=== PATIENT | female | born 1955 | race Caucasian/White ===

== ENCOUNTER → 2017-01-18 | Outpatient (CLI) | payer OTHER ==
[~2017-01-18] VITALS: Ht 172.7 cm; Wt 90.0 kg
[~2017-01-18] MED LIST: ABILIFY 5 MG TAB5 MG PO; AMITRIPTYLINE H25 M2 PO; ASPIRIN325 PO; AZOR 10-20 MG1 EACH PO; AZOR 10-40 MG1 EACH PO; BENICAR20 MG PO; CLONAZEPAM 1 MG1 M1 PO; COLACE100 MG PO; CRESTOR20 MG PO; DESYREL100 MG PO; EFFEXOR PO; EFFEXOR XR150 MG PO; FENTANYL 1100 MCG/HR TP; FENTANYL 1100 MCG/HR TRANSDERM; FETZIMA40 MG PO; LANTUS SC; LIPITOR80 MG PO; LISINOPRIL20 MG PO; METFORMIN HCL500 MG PO; METHADONE HCL 110 M1 PO; MIRALAX17 GM PO; MORPHINE SULFAT15 M3 PO; MS CONTIN15 MG PO; MS CONTIN30 MG PO; NORVASC10 MG PO; NOVOLIN R100 UNIT/1 IJ; OXYCODONE HCL 55 MG PO; OXYCODONE HCL10 MG PO; OXYCODONE PO; OXYIR 5 MG CAPSU5 M1 PO; OXYIR5 MG PO; PANCREASE; PERCOCET 10-321 EACH PO; PRAVACHOL40 MG PO; REGLAN 10 MG TA10 MG PO; REMERON PO; ZOFRAN8 MG SL; ZYPREXA 5 MG TAB5 M1 PO
--- NOTE | ~2017-01-18 | HPC ---
[facility] [address] [place] [address] PAIN MANAGEMENT CONSULTATION Name: GABRIELE MONTALVO Room #: REG [facility]..#: [id number] Admission: 01/18/17 Attend Phys: Jennifer Giles MD Discharge: Date of : 51 Report #: [id number] THIS REPORT FOR: //name// CC: Meghann Giles DATE OF SERVICE: 01/18/2017 FOLLOWUP COMPLAINT: Here for medication renewal and things are working pretty well. FOLLOWUP HISTORY: The patient is a 61-year-old female who has been followed in the pain clinic. As you recall, she suffers from chronic pancreatitis. She has been treated with methadone. She finds that her pain has been better controlled with this medication. She is taking less of the OxyIR. She overall feels that things are going reasonably well and rates her pain as a 3/10. She would like to have her medications renewed. She does not need the OxyIR medication. She says she has some at home. She would just like to have the methadone 10 mg renewed. PHYSICAL EXAMINATION: Blood pressure 153/84, pulse 95, respiratory rate 16, room air saturation is 94%. The patient continues to have pain and discomfort in the abdominal area, which radiates into her back. Her pain has been problematic since 2001. IMPRESSION: Chronic abdominal pain secondary to chronic pancreatitis since 2001, treated with methadone. She finds that this medication is working reasonably well. She is not taking the oxycodone medication given the benefit she has received from methadone. She is happy with her condition at this juncture and would like to continue with her current medications. She would like to have them renewed. RECOMMENDATION: A script for methadone 10 mg 1 p.o. t.i.d. She will take 2 tablets, 20 mg t.i.d. She will call if she has any problems with the medications. We would like to thank you for letting us participate in her care. We hope she continues to improve. By: [id number] Jennifer Giles MD /christian
[2017-01-18 12:41] VITALS: BP 153/84
== END | disposition home or self-care (01) ==
LOC: PAIN 01-15 08:13
DX: K86.1 Other chronic pancreatitis (principal); Z87.891 Personal history of nicotine dependence

== ENCOUNTER → 2017-08-09 | Outpatient (CLI) | payer OTHER ==
[~2017-08-09] VITALS: Ht 172.7 cm; Wt 92.1 kg
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
[2017-08-09 12:29] VITALS: BP 147/93
== END ==
LOC: PAIN 07:00
DX: K86.1 Other chronic pancreatitis (principal); I10 Essential (primary) hypertension; Z79.891 Long term (current) use of opiate analgesic

== ENCOUNTER → 2017-10-30 | Outpatient (CLI) | payer OTHER ==
[~2017-10-30] VITALS: Ht 172.7 cm; Wt 95.8 kg
[~2017-10-30] MED LIST changes: +ROXICODONE5 M2 PO
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
[2017-10-30 09:53] VITALS: BP 132/76
== END ==
LOC: PAIN 00:40
DX: I10 Essential (primary) hypertension (principal); G89.29 Other chronic pain; M19.90 Unspecified osteoarthritis, unspecified site; F11.90 Opioid use, unspecified, uncomplicated

== ENCOUNTER → 2017-11-29 | Outpatient (CLI) | payer OTHER ==
[~2017-11-29] VITALS: Ht 172.7 cm; Wt 91.3 kg
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
[2017-11-29 09:19] VITALS: BP 134/76
== END ==
LOC: PAIN 11-27 06:17
DX: G89.29 Other chronic pain (principal); R10.9 Unspecified abdominal pain; K86.1 Other chronic pancreatitis; R41.82 Altered mental status, unspecified; Z88.5 Allergy status to narcotic agent; Z88.8 Allergy status to other drugs, medicaments and biological substances; Z88.0 Allergy status to penicillin

== ENCOUNTER → 2017-12-27 | Outpatient (CLI) | payer OTHER ==
[~2017-12-27] VITALS: Ht 172.7 cm; Wt 91.6 kg
--- NOTE | ~2017-12-27 | HPC ---
[facility] [address] [place] [address] PAIN MANAGEMENT CONSULTATION Name: GABRIELE MONTALVO Room #: REG [facility]#: [id number] Admission: 12/27/17 Attend Phys: Jennifer Giles MD Discharge: Date of : 51 Report #: [id number] THIS REPORT FOR: //name// CC: Meghann Giles DATE OF SERVICE: 12/27/2017 PRIMARY CARE PHYSICIAN: Meghann Sun MD FOLLOWUP COMPLAINT: "Things are going pretty good. I am feeling well. I did wake up at about 3:00 this morning. I had a flare up of my pain." FOLLOWUP HISTORY: The patient is a 62-year-old female who has been seen in the pain clinic in the past because of chronic pain associated with pancreatitis. Notes that things are going relatively well. She did have an episode of flare up yesterday. She woke up at 3:00 this morning. Finds that taking her medications at 10:30 and about 7:30 p.m. usually works pretty well. She has had no complications. Feels that her sensorium has cleared. Overall, she feels that things are going reasonably well and would like to continue with her medications. She finds that oxycodone seems to be working in controlling the pain relatively well. ALLERGIES: HYDROXYZINE, CODEINE, AMPICILLIN. CURRENT MEDICATIONS: Zofran 8 mg sublingual, aspirin 325 mg, Prevacid 40 mg, Norvasc 10 mg, Zestril 20 mg for a total of 40 mg daily, MiraLax 17 mg cuff for constipation, Effexor 150 mg, Colace 100 mg, clonazepam 1 mg q.i.d., Abilify 5 mg at bedtime, Zyprexa 2.5 mg at bedtime, Roxicodone 5 mg 1 p.o. b.i.d. Discontinued medications, methadone. PAIN CLINIC ASSESSMENT: 1. Osteoarthritis. The patient is not being treated for osteoarthritis or rheumatoid arthritis. 2. Height 5 feet 8 inches, weight 202 pounds, BMI is 30. 3. Vital signs: Blood pressure 172/83, heart rate 55, respiratory rate 15, room air saturation 99%. 4. Pain intensity 10/08. 5. Fall risk. The patient has not fallen. 6. Blood thinner. The patient is not on a blood thinning medication. 7. History of hypertension. The patient is being treated for hypertension. 8. Opioid therapy greater than 6 weeks. The patient is being treated for chronic pain with opioids from the pain clinic. 9. Risk assessment tool, low risk for opioid use. 10. Functional assessment tool for 59/70. [address] [address] PAIN MANAGEMENT CONSULTATION Name: GABRIELE MONTALVO Room #: REG [facility]#: [id number] Admission: 12/27/17 Attend Phys: Jennifer Giles MD Discharge: Date of : 51 Report #: [id number] 11. Recreational drug use. The patient denies use of recreational drugs. 12. Tobacco: The patient is a former smoker. 13. Alcohol: The patient denies use of alcoholic beverages. PHYSICAL EXAMINATION: GENERAL: The patient is a well-developed white female. She appears her stated age. She is alert and oriented x 3. Her sensorium appears clear. She is spontaneous. HEENT: Normocephalic, atraumatic. Extraocular eye muscles intact. No evidence of nystagmus. Sclerae nonicteric. Hearing within normal limits. Mucous membranes are moist. NECK: Without adenopathy or bruits. HEART: Regular rate. S1, S2. ABDOMEN: Protuberant. The patient does complain of some pain and discomfort in the anterior portion with radiation in her back with flareups this morning. Upper extremity strength is judged to be 5/5 for the major upper extremity areas without sensory changes. Lower extremity muscle strength 5/5 for the major muscle groups. MUSCULOSKELETAL: Without significant scoliosis, kyphosis or lordosis. PSYCHIATRIC: The patient appears to be bright. States that her medications are working well. She feels that the use of the Roxicodone seems to be reasonably well tolerated. IMPRESSION: 1. Chronic pain with history of chronic pancreatitis. 2. Depression. The patient continues to be followed by her Psychiatry/psychiatrist. 3. Hypertension. 4. Chronic pain, treated with opioid medications. RECOMMENDATIONS: We discussed treatment options with the patient. At this juncture, we will continue with her current medication of Roxicodone. She will see us on a monthly basis for a period of time and make sure that things are going reasonably well. She will call us if she has any problems with her medications. We have discussed the use of opioid medications. She is aware of the possible complication with opioid medications, which could cause dependence as well as tolerance. Overall, she feels that things are going reasonably well. Took her medication this morning with the onset of a flare of her chronic pancreatitis. Feels that, that is helped with use of oxycodone. She will call us if she has any problems with her medications. The patient will keep her medications in a confined area. [facility] [address] [place] [address] PAIN MANAGEMENT CONSULTATION Name: GABRIELE MONTALVO Room #: REG [facility]#: [id number] Admission: 12/27/17 Attend Phys: Jennifer Giles MD Discharge: Date of : 51 Report #: [id number] We would like to thank you for letting us participate in her care. We hope she continues to improve. By: [id number] Jennifer Giles MD /VEELYN
[2017-12-27 09:17] VITALS: BP 172/83
== END ==
LOC: PAIN 07:11
DX: K86.1 Other chronic pancreatitis (principal); I10 Essential (primary) hypertension; F32.9 Major depressive disorder, single episode, unspecified; Z79.891 Long term (current) use of opiate analgesic

== ENCOUNTER → 2018-01-24 | Outpatient (CLI) | payer OTHER ==
[~2018-01-24] VITALS: Ht 172.7 cm; Wt 92.7 kg
[2018-01-24 08:48] VITALS: BP 151/79
== END ==
LOC: PAIN 06:30
DX: Z09 Encounter for follow-up examination after completed treatment for conditions other than malignant neoplasm (principal); K86.1 Other chronic pancreatitis; I10 Essential (primary) hypertension; Z79.891 Long term (current) use of opiate analgesic; Z79.899 Other long term (current) drug therapy; Z87.891 Personal history of nicotine dependence

== ENCOUNTER → 2018-02-21 | Outpatient (CLI) | payer OTHER ==
[~2018-02-21] VITALS: Ht 172.7 cm; Wt 93.0 kg
--- NOTE | ~2018-02-21 | HPC ---
[facility] [place] [address] PAIN MANAGEMENT CONSULTATION Name: GABRIELE MONTALVO Room #: REG [facility] Waldo#: [id number] Admission: 02/21/18 Attend Phys: Jennifer Giles MD Discharge: Date of : 51 Report #: [id number] THIS REPORT FOR: //name// CC: Meghann Giles DATE OF SERVICE: 02/21/2018 FOLLOWUP COMPLAINT: Things are going pretty well, has had no problems, and my medicines worked in all right. FOLLOWUP HISTORY: The patient is a 62-year-old female, who is followed in the pain clinic because of chronic pain associated with pancreatitis. She continues to do reasonably well. She feels that her medications are helping. She has had no complications. She continues to follow up with her psychiatrist. She rates her pain as 3-4 at this point. She is able to engage in activities of daily living with use of her medications. She is still has abdominal pain that radiates to her back, center, and the left abdominal area can be uncomfortable at times as well. No new complaints. She has returned today for renewal of her medications. She has had no side effects from withdrawal. She is aware that opioid medications can be less effective as time goes on secondary to intolerance. CURRENT MEDICATIONS: Zofran 8 mg sublingual, aspirin 325 mg, Prevacid 40 mg, Norvasc 10 mg, Zestril 20 mg, a total of 40 mg; MiraLax 17 mg for constipation, Effexor 150 mg, Colace 100 mg, clonazepam 1 mg q.i.d., Abilify 5 mg at bedtime, Zyprexa 2.5 mg at bedtime, oxycodone 1 p.o. b.i.d., and methadone has been used in the past and has been discontinued. She has had no problems with disuse of that medication. ALLERGIES: THE PATIENT IS ALLERGIC TO HYDROXYZINE, CODEINE, AND AMPICILLIN. PAIN CLINIC ASSESSMENT: 1 The patient is not being treated for osteoarthritis or rheumatoid arthritis. 2. Pain intensity is 3/4. 3. Fall risk. The patient has not fallen in the last 3 months. 4. Blood thinners. The patient is not on a blood thinning medication. 5. History of hypertension. The patient is being treated for hypertension. 6. Opioid therapy greater than 6 weeks. The patient is on a contract with the pain clinic. 7. Risk assessment tool: Low risk for use of opioids. 8. Functional assessment tool 59/70. 9. Recreational drug use: The patient denies use of recreational drugs. 10. Tobacco: The patient denies use of tobacco. 11. Alcohol: The patient denies use of alcoholic beverages. [address] [address] PAIN MANAGEMENT CONSULTATION Name: GABRIELE MONTALVO Room #: REG [facility] Waldo#: [id number] Admission: 02/21/18 Attend Phys: Jennifer Gilse MD Discharge: Date of : 51 Report #: [id number] PHYSICAL EXAMINATION: GENERAL: The patient is a well-developed, well-nourished white female. She appears her stated age. Affect is appropriate. Speech is fluent. Height is 5 feet 8 inches, weight is 205 pounds, and BMI is 31.2. Vital signs: Blood pressure is 151/95, pulse is 63, respiratory rate is 14, and room air saturation is 97%. HEENT: Normocephalic, atraumatic. Extraocular eye muscles intact. Nose nystagmus is present. Sclerae nonicteric. Hearing is within normal limits. Mucous membranes are moist. NECK: Without adenopathy or bruits. HEART: Regular rate. S1, S2. ABDOMEN: Protuberant. The patient does have some abdominal pain, which radiates back into the posterior portion of her back when her pain flares. MUSCULOSKELETAL: Without significant scoliosis, kyphosis, or lordosis. Upper extremity muscle strength is judged to be 5/5 with sensory changes. Lower extremity, strength is 5/5 without sensory changes. PSYCHIATRIC: The patient appears bright, continues to be spontaneous. IMPRESSION: 1. Chronic pain with history of chronic pancreatitis. 2. Depression. The patient continues to follow up with her psychiatrist. 3. Hypertension. 4. Chronic pain treated with complex medical management using opioids. RECOMMENDATIONS: We discussed treatment options with the patient. We will continue with her current medication. She states that she is continuing to do well. She continue to follow up with her psychiatrist. She is engaging in activities at home. She has problems with squirrels in her neighborhood. She states that squirrels got into her house and that they have to trap it. We would like to thank you for letting us to participate in her care. We hope she continues to improve. By: [id number] Jennifer Giles MD /EVELYN
[2018-02-21 08:03] VITALS: BP 151/95
== END ==
LOC: PAIN 06:57
DX: K86.1 Other chronic pancreatitis (principal); G89.29 Other chronic pain; I10 Essential (primary) hypertension; F32.9 Major depressive disorder, single episode, unspecified; Z79.891 Long term (current) use of opiate analgesic

== ENCOUNTER → 2018-03-26 | Outpatient (CLI) | payer OTHER ==
[~2018-03-26] VITALS: Ht 172.7 cm; Wt 89.1 kg
--- NOTE | ~2018-03-26 | HPC ---
[facility] [address] [place] [address] PAIN MANAGEMENT CONSULTATION Name: GABRIELE MNOTALVO Room #: REG [facility] Waldo#: [id number] Admission: 03/26/18 Attend Phys: Jennifer Giles MD Discharge: Date of : 51 Report #: [id number] THIS REPORT FOR: //name// CC: Meghann Giles DATE OF SERVICE: 03/26/2018 FOLLOWUP COMPLAINT: "Here for medications. Things are still going well." FOLLOWUP HISTORY: The patient is a 62-year-old female who has been followed in the Pain Clinic. As you are aware, she suffers from chronic pancreatitis. She states that she has not had another episode. She continues to have some discomfort and the pain waxes and wanes. Her current medications seem appropriate. She denies any problems with oversedation or additional problems which she would associate with use of the opioid medication. She has returned today for renewal of her medications. She states she keeps her medications in a guarded area. She has had some pain that radiates down into her back and into the center of her abdomen. She rates it as a 3/10 today. There is some burning, sharp, and aching quality to this. As you recall, she has had this since 2001. She notes that certain foods can exacerbate her discomfort. CURRENT MEDICATIONS: Zofran 8 mg sublingual; aspirin 325 mg; Prevacid 40 mg; Norvasc 10 mg; Zestril 20 mg, total 40 mg Zestril; MiraLax 17 mg for constipation; Effexor 150 mg; Colace 100 mg; clonazepam 1 mg q.i.d.; Abilify 5 mg at bedtime; Zyprexa 2.5 mg at bedtime; oxycodone 1 mg b.i.d.; methadone was used in the past and has been discontinued. The patient does not have any problems with that. ALLERGIES: THE PATIENT IS ALLERGIC TO HYDROXYZINE, CODEINE, AND PENICILLIN. PAIN CLINIC ASSESSMENT/PQRS: 1. The patient is not being treated for osteoarthritis or rheumatoid arthritis. 2. Pain intensity is 3/10. 3. Height 5 feet 8 inches, weight 196 pounds, BMI is 29.9. 4. Vital signs: Blood pressure 152/93, pulse 73, respiratory rate 18, room air saturation 98%. 5. Fall risk. The patient has not fallen in the last 3 months. 6. Blood thinner. The patient is not on a blood thinning medication. 7. Hypertension. The patient is being treated for hypertension. 8. Opioid therapy greater than 6 weeks. The patient is receiving her medications from one source, [facility]. 9. Risk assessment tool, low risk for opioid use. 10. Functional assessment, 59/70. 11. Recreational drug use: The patient denies use of recreational drugs. 12. Former smoker, not smoking at this juncture. [address] [address] PAIN MANAGEMENT CONSULTATION Name: GABRIELE MONTALVO Room #: REG [facility] Waldo#: [id number] Admission: 03/26/18 Attend Phys: Jennifer Giles MD Discharge: Date of : 51 Report #: [id number] 13. Alcohol: The patient denies use of alcoholic beverages. PHYSICAL EXAMINATION: GENERAL: The patient is a well-developed, well-nourished white female. Appears her stated age. She is alert and oriented x 3. Her affect is appropriate. Speech is fluent. HEENT: Normocephalic, atraumatic. Extraocular eye muscles intact. Sclerae nonicteric. Mucous membranes are moist. The patient has hearing, which is within normal limits. NECK: Without adenopathy or JVD. HEART: Regular rate. S1, S2. ABDOMEN: Protuberant. The patient does have some abdominal pain, which radiates into the posterior portion of her back as well as into the side. MUSCULOSKELETAL: Without significant scoliosis, kyphosis, or lordosis. The patient's muscle strength is judged to be 5/5 for the major muscle groups in the upper extremity as well as the lower extremity. PSYCHIATRIC: The patient appears bright. This interaction is spontaneous. She appears happy. IMPRESSION: 1. Chronic pain with history of chronic pancreatitis. 2. Depression. 3. Hypertension. 4. Chronic pain treated with complex medical management. 5. The patient is followed by her psychiatrist. RECOMMENDATIONS: We discussed treatment options with the patient. At this juncture, she feels that her medications continue to be helpful. She would like to continue their use. She is not having any problems. She has no thought of hurting herself. She is keeping her medications in a guarded area. She is aware that opioid medications can be problematic. She is aware that opioid medications can cause some dependence. She is aware that use of opioid medications can be less effective over a period of time secondary to tolerance. Overall, she feels that things are going well and would like to continue with her medications. She will call us if she has any concerns. We would like to thank you for letting us participate in her care. We hope she continues to improve. <ELECTRONICALLY SIGNED> By: Jennifer Giles MD 04/14/18 [id number] Jennifer Giles MD /christian
[2018-03-26 12:51] VITALS: BP 152/93
== END ==
LOC: PAIN 06:54
DX: K86.1 Other chronic pancreatitis (principal); Z79.899 Other long term (current) drug therapy

== ENCOUNTER → 2018-04-25 | Outpatient (CLI) | payer OTHER ==
[~2018-04-25] VITALS: Ht 172.7 cm; Wt 84.3 kg
--- NOTE | ~2018-04-25 | HPC ---
[facility] [address] [place] [address] PAIN MANAGEMENT CONSULTATION Name: GABRIELE MONTALVO Room #: REG [facility].#: [id number] Admission: 04/25/18 Attend Phys: Meka Garcia Discharge: Date of : 51 Report #: [id number] THIS REPORT FOR: //name// CC: Meka Sun DATE OF SERVICE: 04/25/2018 CHIEF COMPLAINT: Here for her medication refill for her chronic pancreatitis. HISTORY OF PRESENT ILLNESS: The patient is a 62-year-old female who suffers from chronic pancreatitis. She has not had any recent episodes and does continue to have some symptoms that cause her pain in her abdominal area that radiates to her back. She does state that her pain medications are helpful at this time. She does have some days that are worse than others, but is able to be functioning better than on her previous medications. She did go on a trip to [place] and was able to tolerate that vacation with little difficulty. She denies any problems with over sedation or constipation issues. She rates her pain today at 4/10 with achy, burning and intermittent pain, worse with certain foods that she eats in her abdomen. She thinks the medicines are helpful as well as like leaning forward. ALLERGIES: VISTARIL, CODEINE, AMPICILLIN. LIST OF CURRENT MEDICATIONS: Oxycodone 5 twice a day, Zyprexa 2.5 mg at bedtime, Abilify 5 mg at bedtime, clonazepam 1 mg 1-4 tablets 4 times a day, Effexor 225 mg daily, lisinopril 40 mg daily, Norvasc 10 mg daily, Pravachol 40 mg daily, aspirin 325 mg daily, Zofran as needed. PQRS: 1. Not treated for osteoarthritis or rheumatoid arthritis. 2. Height 5 feet 8 inches, weight 185.8. BMI is 28.3. 3. Vital signs: Blood pressure 128/87, pulse 108, respirations 16, oxygen sat is 95%. 4. Pain score is 4/10. 5. Fall risk: She denies dizziness, does not need help walking or standing and has not fallen in the last 3 months. 6. She denies blood thinners. 7. Does have a history of hypertension. 8. Opioid therapy is greater than 6 weeks, therefore, an opioid signed contract is on the chart. 9. Risk assessment tool is low. 10. Functional assessment is 59/70. 11. The patient does not use recreational drug use, is a former smoker and no alcohol use. [address] [address] PAIN MANAGEMENT CONSULTATION Name: GABRIELE MONTALVO Room #: REG [facility] Waldo#: [id number] Admission: 04/25/18 Attend Phys: Meka Garcia Discharge: Date of : 51 Report #: [id number] [facility], the patient is found to be only filling narcotics from Dr. Caren Giles and benzodiazepines from her current psychologist. No aberrant behavior noted. The patient does tell me that she is safeguarding all of her medications. PHYSICAL EXAMINATION: GENERAL: The patient is well-developed, well-nourished white 62-year-old female, appears her stated age. She is alert and oriented x 3. Her affect is appropriate. HEENT: Normocephalic, atraumatic. Extraocular eye muscles are intact. Mucous membranes are moist. NECK: Without adenopathy. ABDOMEN: Protuberant. The patient does have some abdominal pain, which radiates to posterior portion of her back as well as to sides of her abdomen. MUSCULOSKELETAL: Without significant scoliosis, kyphosis or lordosis. Muscle strength appears to be 5/5 in her major muscle groups in her upper and lower extremities. PSYCHIATRIC: The patient appears bright today, almost happy, states that she is feeling better than she has in a long time, but does have days that her pain is worse. IMPRESSION: 1. Chronic pain with history of chronic pancreatitis. 2. Depression. 3. Hypertension. 4. Complex medical management regarding opioids. RECOMMENDATION: We discussed treatment options with this patient today. At this time, she feels that her medications are very helpful her oxycodone 5 mg that she takes twice a day. She is keeping her medicines safeguarded at this time. We discussed giving her 1 month of medications and we will see her back in May for medication refills. Scripts today for oxycodone 5 mg 1 p.o. b.i.d., #60 today. The patient was seen in collaboration with Dr. Justin Giles. <ELECTRONICALLY SIGNED> By: Meka Garcia 04/28/18 0827 [id number] Meka Garcia /christian
[2018-04-25 13:02] VITALS: BP 128/87
== END ==
LOC: PAIN 07:27
DX: K86.1 Other chronic pancreatitis (principal); I10 Essential (primary) hypertension; F32.9 Major depressive disorder, single episode, unspecified; Z79.891 Long term (current) use of opiate analgesic; Z79.899 Other long term (current) drug therapy

== ENCOUNTER → 2018-05-21 | Outpatient (CLI) | payer OTHER ==
[~2018-05-21] VITALS: Ht 172.7 cm; Wt 84.3 kg
[~2018-05-21] MED LIST changes: +DEPLIN-ALGAL O1 EAC1 PO; +LOPRESSOR50 PO
[2018-05-21 12:50] VITALS: BP 139/92
== END ==
LOC: PAIN 06:37
DX: M54.5 Low back pain (principal); R10.9 Unspecified abdominal pain; G89.29 Other chronic pain; Z79.899 Other long term (current) drug therapy; Z79.891 Long term (current) use of opiate analgesic; Z87.891 Personal history of nicotine dependence

== ENCOUNTER → 2018-06-18 | Outpatient (CLI) | payer OTHER ==
[~2018-06-18] VITALS: Ht 172.7 cm; Wt 83.2 kg
[~2018-06-18] MED LIST changes: +OXYCODONE HCL5 M1 PO
--- NOTE | ~2018-06-18 | HPC ---
[facility] [address] [place] [address] PAIN MANAGEMENT CONSULTATION Name: GABRIELE MONTALVO Room #: REG [facility]#: [id number] Admission: 06/18/18 Attend Phys: Meka Garcia Discharge: Date of : 51 Report #: [id number] THIS REPORT FOR: //name// CC: Meka Garcia Meghann Dino DATE OF SERVICE: 06/18/2018 CHIEF COMPLAINT: Chronic pancreatitis. HISTORY OF PRESENT ILLNESS: This is a pleasant 62-year-old female who has been followed in the pain clinic for her chronic pancreatitis. She tells me that she has been doing quite well with the current medicines that she is taking. She has not had any episodes of acute pancreatitis in the last few months. She rates her pain score at 4/10 today. Tells me the medicines are beneficial as well as leaning forward and lying down. She has been avoiding certain foods that cause problems for her abdominal pain. The patient tells me she denies constipation and she does not have any daytime sleepiness, though she does lay down quite frequently to relieve some of her pain, she is not sleeping. The patient has been stable on her oxycodone 5 mg twice a day for about 6 months. She would like a refill today. ALLERGIES: HYDROXYZINE, CODEINE, AND PENICILLIN. CURRENT MEDICATIONS: Oxycodone 5 twice a day, Lopressor 50 mg daily, Deplin 15 mg daily, metformin 500 mg 3 times a day, Zyprexa 2.5 mg at bedtime, Abilify 5 mg at bedtime, clonazepam 1 mg 4 times a day, Effexor XR 150 daily, pravastatin 40 mg daily, aspirin daily and Zofran as needed. PQRS: The patient is not being treated for osteoarthritis or rheumatoid arthritis. Height is 5 feet 8 inches, weight is 183, BMI is 27.9. Vital signs: Blood pressure 148/100, pulse is 93, respirations 16, oxygen sat is 96%. Pain score today is 4/10. Fall risk, she denies dizziness. Does not need help walking or standing. Has not fallen in the last 3 months. She is not on any blood thinners. She does take medicine for hypertension. Her opioid therapy is greater than 6 weeks, therefore, an opioid signed contract is on the chart. Her risk assessment tool is low. Her functional assessment is 59/70. Recreational drug use, she denies. She is a former smoker, but does not drink alcohol. We did check the prescription monitoring system and the patient is filling appropriately for her medicines from our doctors within our clinic and is due today for her medications. PHYSICAL EXAMINATION: GENERAL: This is a well-developed, well-nourished white female who appears her stated age. She is alert and oriented x 3. Her affect is appropriate. Her speech is fluent. [address] [address] PAIN MANAGEMENT CONSULTATION Name: GABRIELE MONTALVO Room #: REG [facility]#: [id number] Admission: 06/18/18 Attend Phys: Meka Garcia Discharge: Date of : 51 Report #: [id number] HEENT: Normocephalic, atraumatic. Extraocular eye muscles are intact. Mucous membranes are moist. NECK: Without adenopathy or JVD. ABDOMEN: Some abdomen pain, radiates to the posterior portion from her back, radiates to the left side consistent with pancreatitis. MUSCULOSKELETAL: Without significant scoliosis, kyphosis or lordosis. Muscle strength in the upper extremities judged to be 5/5 for major muscle groups and strength judged to be 5/5 in her lower extremities as well. PSYCHIATRIC: The patient appears happy today. Denies any psychiatric problems. Does consider to see her therapist. IMPRESSION: 1. Chronic pain secondary to pancreatitis. 2. Depression. 3. Complex medical management regarding opioids and under written agreement. 4. Hypertension. We reviewed the fact that opiate medications are being used to provide analgesia adequate to support activities of daily living, not attempting to achieve a specific pain score on the 0-10 Visual Analog Scale. The current opiate medications are providing sufficient analgesia to allow the patient to participate in activities of daily living. The patient is not exhibiting any aberrant behavior suggestive of drug diversion. The patient is not having any adverse reactions to medications. The patient is not suffering from daytime somnolence or mental acuity changes. The patient is managing opiate-induced constipation with appropriate [id number] agents and dietary considerations. The patient was counseled on concern for caution with operating a motor vehicle while using opiate medications. A physical exam was performed and the patient's functional status was evaluated. All patients with back pain were advised against the bed rest greater than 4 days and were advised to return to normal activities. Pain score assessment was noted and the treatment plan was reviewed with the patient. All current medications, both prescribed and OTC were reviewed and reconciled on the electronic medical record. Tobacco screening was accomplished and smoking cessation was advised when indicated. BMI was noted and diet/exercise modification was recommended for all patients following outside normal parameters. I reviewed with the patient today their responsibilities to safeguard prescription medications, reviewed their responsibility to utilize medications only as prescribed by the physician. They are to seek and receive pain medications only from 1 physician group ( [facility]). They are to use 1 pharmacy and keep the clinic informed if they change pharmacies. Their responsibilities include making followup visits in a timely fashion and to avoid abrupt discontinuation of medication usage. Their responsibilities further [facility] [address] [place] [address] PAIN MANAGEMENT CONSULTATION Name: GABRIELE MONTALVO Room #: REG [facility]..#: [id number] Admission: 06/18/18 Attend Phys: Meka Garcia Discharge: Date of : 51 Report #: [id number] include bringing their medications (bottles from the pharmacy with residual pills) to the visit for possible confirmation of pill counts and the patient understands it is their responsibility to submit to random drug screens to ensure both that the medications prescribed are present, and that no other controlled substances are present. All prescriptions provided today were generated electronically. PLAN: We discussed treatment options today for the patient. She has been given a script for her OxyIR 5 mg 1 tablet twice a day, #60 for today and 4-week time period. We will see her back in 2 months since she has been stable on this medication for 6 months in the past. The patient is agreeable with this plan of care. The patient is seen today in collaboration with Dr. Justin Giles. <ELECTRONICALLY SIGNED> By: Meka Garcia 06/19/18 0845 [id number] Meka Garcia /nt
[2018-06-18 12:36] VITALS: BP 148/100
== END ==
LOC: PAIN 10:46
DX: K86.1 Other chronic pancreatitis (principal); G89.29 Other chronic pain; F32.9 Major depressive disorder, single episode, unspecified; I10 Essential (primary) hypertension; Z79.891 Long term (current) use of opiate analgesic

== ENCOUNTER 2018-07-14 07:29 | Emergency (ER) | payer OTHER ==
[~2018-07-14] VITALS: Ht 172.7 cm; Wt 79.8 kg
[2018-07-14] MEDS ORDERED: ANTIVERT25 MG PO (09:33)
[2018-07-14] MEDS ORDERED: KEFLEX500 M1 PO (09:33)
[2018-07-14 10:31] VITALS: BP 148/67
== END 2018-07-14 10:31 | disposition home or self-care (01) ==
LOC: ER 07:29
DX: S01.511A Laceration without foreign body of lip, initial encounter (principal); S80.211A Abrasion, right knee, initial encounter; S80.212A Abrasion, left knee, initial encounter; R42 Dizziness and giddiness; F32.9 Major depressive disorder, single episode, unspecified; F41.9 Anxiety disorder, unspecified; E11.9 Type 2 diabetes mellitus without complications; Z87.891 Personal history of nicotine dependence; Z88.8 Allergy status to other drugs, medicaments and biological substances; Z88.1 Allergy status to other antibiotic agents; Z88.5 Allergy status to narcotic agent; W18.39XA Other fall on same level, initial encounter; Y92.89 Other specified places as the place of occurrence of the external cause; Y93.89 Activity, other specified; Y99.8 Other external cause status

== ENCOUNTER → 2018-09-08 | Outpatient (CLI) | payer OTHER ==
[~2018-09-08] VITALS: Ht 172.7 cm; Wt 83.5 kg
[~2018-09-08] MED LIST changes: +ANTIVERT25 MG PO; +KEFLEX500 M1 PO
[2018-09-08 08:06] VITALS: BP 152/93
--- NOTE | 2018-09-08 08:10 | NUR ---
Pain Clinic Assessment: 1. History of Osteoarthritis: NO History of Rheumatoid Arthritis: NO 2. Height: 5 ft. 8 in. 172.7 cm. Weight: 184.0 lb. oz. 83.462 kg. Patient's BMI: 28.0 3. Vital Signs: BP: 152/93 Pulse: 80 Resp: 16 Temp: 02 Sat: 97 ECG Mon: 4. Pain Intensity: 2 5. Fall Risk: Dizziness: N Needs help standing or walking: N Fallen in the last 3 months: Y Fall risk comments: seen by Dr for crystals in ears and has had 4 treatments also doing therapy for balance 6. Patient on Blood Thinner: None 7. History of Hypertension: Y 8. Opioid Therapy greater than 6 weeks: Y Opiate Contract Signed: 08/09/17 9. Risk Assessment Tool Provided: LOW RISK 10. Functional Assessment Tool: 59/70 11. Recreational Drug Use: Never Drug Type: Tobacco Use: Former Smoker Tobacco Type: Amount or Packs/day: How Many Years: Alcohol Use: No Frequency: Quant:
--- NOTE | 2018-09-09 08:52 | HPC ---
[facility] [address] [place] [address] PAIN MANAGEMENT CONSULTATION Name: GABRIELE MONTALVO Room #: REG [facility] Waldo#: [id number] Admission: 09/08/18 ������������������ Attend Phys: Meka Garcia Discharge: ������������������ Date of : 51 Report #: [id number] THIS REPORT FOR: //name// CC: Meka Sun DATE OF SERVICE: 09/08/2018 CHIEF COMPLAINT: Chronic pancreatitis. HISTORY OF PRESENT ILLNESS: The patient returns to the pain clinic today for refill of her medications for her chronic pancreatitis. She tells me she is doing well currently and her abdominal pain she rates as a 2/10 today. She tells me she had been continuing to have dizzy spells and had fallen and required 13 stitches in her upper right lip. She tells me she has been seen in the [facility] and has had several treatments for crystals in her bilateral ears. She tells me that her ENT had referred her there. She said since Saturday, she has had no dizziness. They are still working on some of her balance issues, but she tells me that she has had no dizziness since Saturday since the last treatment that she had there. She tells me that her pain has been well controlled these past 3 months since we have seen her and 2 months of medications have lasted her 3 months. She would like a refill today. ALLERGIES: VISTARIL, CODEINE, AND AMPICILLIN. CURRENT LIST OF MEDICATIONS: Oxycodone 5 mg b.i.d., Lopressor 50 mg daily, Glucophage 500 mg 3 times a day, clonazepam 1 mg 4 times a day, Effexor 150 daily, pravastatin 40 mg daily, aspirin 325 mg daily, Zofran as needed. PQRS: 1. She is not being treated for osteoarthritis or rheumatoid arthritis. 2. Height is 5 feet 8 inches, weight is 184. BMI is 28. Vital signs 152/93, pulse is 80, respirations 16, oxygen sat is 97, pain score 2/10. 3. Fall risk. She denies dizziness today, does not need help walking or standing. Has fallen in the last 3 months and went to the ER and was treated. The patient is not taking any blood thinners. She does take medicines for hypertension. Her opioid therapy is greater than 6 weeks; therefore, no opioid signed contract is on the chart. Her risk assessment tool is low. Her functional assessment is 59/70. Recreational drug use, she denies. She is a former smoker and does not drink alcohol. We did check the prescription monitoring system. The patient is filling appropriately for her medications from Dr. Giles. PHYSICAL EXAMINATION: GENERAL: This is a well-developed, well-nourished white female who appears her stated age. She is alert and orientated and her affect is appropriate. Her [address] [address] PAIN MANAGEMENT CONSULTATION Name: GABRIELE MONTALVO Room #: REG Tuyet Haas#: [id number] Admission: 09/08/18 ������������������ Attend Phys: Meka Garcia Discharge: ������������������ Date of : 51 Report #: [id number] speech is fluent. HEENT: Normocephalic, atraumatic. Extraocular eye muscles are intact. Mucous membranes are moist. NECK: Without adenopathy or JVD. ABDOMEN: Denies abdominal pain today. MUSCULOSKELETAL: Without significant scoliosis, kyphosis or lordosis. Muscle strength in the lower extremities judged to be 5/5 in all major muscle groups. PSYCHIATRIC: The patient appears happy today, does continue to see her therapist. IMPRESSION: 1. Chronic pain secondary to pancreatitis. 2. Depression. 3. Complex medical management regarding opioids and a written opioid agreement. 4. Hypertension. We reviewed the fact that opiate medications are being used to provide analgesia adequate to support activities of daily living, not attempting to achieve a specific pain score on the 0-10 Visual Analog Scale. The current opiate medications are providing sufficient analgesia to allow the patient to participate in activities of daily living. The patient is not exhibiting any aberrant behavior suggestive of drug diversion. The patient is not having any adverse reactions to medications. The patient is not suffering from daytime somnolence or mental acuity changes. The patient is managing opiate-induced constipation with appropriate rxoi-kwo-ladnskv agents and dietary considerations. The patient was counseled on concern for caution with operating a motor vehicle while using opiate medications. A physical exam was performed and the patient's functional status was evaluated. All patients with back pain were advised against the bed rest greater than 4 days and were advised to return to normal activities. Pain score assessment was noted and the treatment plan was reviewed with the patient. All current medications, both prescribed and OTC were reviewed and reconciled on the electronic medical record. Tobacco screening was accomplished and smoking cessation was advised when indicated. BMI was noted and diet/exercise modification was recommended for all patients following outside normal parameters. I reviewed with the patient today their responsibilities to safeguard prescription medications, reviewed their responsibility to utilize medications only as prescribed by the physician. They are to seek and receive pain medications only from 1 physician group ([facility]). They are to use 1 pharmacy and keep the clinic informed if they change pharmacies. Their responsibilities include making followup visits in a timely fashion and to avoid abrupt discontinuation of medication usage. Their responsibilities further include bringing their medications (bottles from the pharmacy with residual [facility] [address] [facility] [place] [address] PAIN MANAGEMENT CONSULTATION Name: GABRIELE MONTALVO Room #: REG SORIN Haas#: [id number] Admission: 09/08/18 ������������������ Attend Phys: Meka Garcia Discharge: ������������������ Date of : 51 Report #: [id number] pills) to the visit for possible confirmation of pill counts and the patient understands it is their responsibility to submit to random drug screens to ensure both that the medications prescribed are present, and that no other controlled substances are present. All prescriptions provided today were generated electronically. PLAN: We discussed treatment options with the patient today. She has been doing well on her oxycodone 5 mg 1 tablet twice a day. Scripts given for #60 for today and 4-week release. We will see her back in 2 months. At that time, we will check a buccal drug screen on her. The patient is seen in collaboration today with Dr. Justin Giles. ��������������������������������������������� <ELECTRONICALLY SIGNED> ���������������������������������������� By: Meka Garcia ��������������������������������������������� 09/09/18 0852 [id number] Meka Garcia /nt
== END ==
LOC: PAIN 06:44
DX: K86.1 Other chronic pancreatitis (principal); F32.9 Major depressive disorder, single episode, unspecified; I10 Essential (primary) hypertension; Z79.899 Other long term (current) drug therapy; Z79.891 Long term (current) use of opiate analgesic

== ENCOUNTER → 2018-11-10 | Outpatient (CLI) | payer OTHER ==
[~2018-11-10] VITALS: Ht 172.7 cm; Wt 85.7 kg
[~2018-11-10] MED LIST changes: +MELATONIN10 M2 PO
[2018-11-10 12:55] VITALS: BP 168/83
--- NOTE | 2018-11-10 12:59 | NUR ---
Pain Clinic Assessment: 1. History of Osteoarthritis: NO History of Rheumatoid Arthritis: NO 2. Height: 5 ft. 8 in. 172.7 cm. Weight: 189.0 lb. oz. 85.730 kg. Patient's BMI: 28.7 3. Vital Signs: BP: 168/83 Pulse: 73 Resp: 16 Temp: 02 Sat: 97 ECG Mon: 4. Pain Intensity: 4 5. Fall Risk: Dizziness: N Needs help standing or walking: N Fallen in the last 3 months: N Fall risk comments: seen by Dr for crystals in ears and has had 4 treatments also doing therapy for balance 6. Patient on Blood Thinner: None 7. History of Hypertension: Y 8. Opioid Therapy greater than 6 weeks: Y Opiate Contract Signed: 08/09/17 9. Risk Assessment Tool Provided: LOW RISK-4 10. Functional Assessment Tool: 53/70 11. Recreational Drug Use: Never Drug Type: Tobacco Use: Former Smoker Tobacco Type: Amount or Packs/day: How Many Years: Alcohol Use: No Frequency: Quant:
--- NOTE | 2018-11-11 07:51 | HPC ---
[facility] [address] [place] [address] PAIN MANAGEMENT CONSULTATION Name: GABRIELE MONTALVO Room #: REG [facility].#: [id number] Admission: 11/10/18 ������������������ Attend Phys: Meka Garcia Discharge: ������������������ Date of : 51 Report #: [id number] THIS REPORT FOR: //name// CC: Meka Girarda Dino DATE OF SERVICE: 11/10/2018 CHIEF COMPLAINT: Chronic pancreatitis. HISTORY OF PRESENT ILLNESS: This is a very pleasant 63-year-old female who returns to the pain clinic today for her chronic pancreatitis that requires long-term chronic medications. She tells me that she is having a flare today. She had pain start over the weekend. Since that time, she has decreased her food intake, mainly taking oral liquids. She tells me her pain is radiating from the center to the left of her abdomen, radiating towards her back. Her pain score is 4/10 today. She tells me she has been resting most of the weekend, which is helpful in reducing her medications as well as her symptoms, as well as taking her pain medicines and drinking plenty of fluids. It is achy, burning, sharp pain that she experiences. Normally, she had been doing quite well she tells me with her pain regimen. She is thankful that she only has flare-ups every few months now as opposed to every few weeks as she had in the past. She denies any problems with constipation or daytime sleepiness. She would just like a refill of her medications today. ALLERGIES: VISTARIL, CODEINE, AND AMPICILLIN. CURRENT MEDICATIONS: Oxycodone 5 mg b.i.d., melatonin at bedtime, Lopressor 50 mg daily, metformin 500 mg 3 times a day, clonazepam 1 mg 4 times a day, Effexor 150 mg daily, pravastatin 40 mg daily, aspirin 325 mg daily and Zofran p.r.n. PQRS: 1. She is not being treated for osteoarthritis or rheumatoid arthritis. 2. Height is 5 feet 8 inches, weight is 189. BMI is 28. 3. Vital signs: Blood pressure 168/83, pulse is 73, respirations 16, oxygen sat is 97. Pain score 4/10. 4. Fall risk: Denies dizziness. Does not need help with walking or standing and has not fallen in the last 3 months. 5. The patient is on blood thinners. She does take medicines for hypertension. 6. Opioid therapy is greater than 6 weeks; therefore, an opioid signed contract is on the chart. 7. Risk assessment tool is low. Functional assessment is 53.70. 8. Recreational drug use, she denies. She is a former smoker and does not drink alcohol. We did check the prescription monitoring system[place] [address] PAIN MANAGEMENT CONSULTATION Name: GABRIELE MONTALVO Room #: REG Tuyet Haas#: [id number] Admission: 11/10/18 ������������������ Attend Phys: Meka Garcia Discharge: ������������������ Date of : 51 Report #: [id number] appropriately for her medications, but there is not a recent drug screen on the chart so therefore, we will check one on her today. She tells me she does safeguard her medications. PHYSICAL EXAMINATION: GENERAL: This is a well-developed, well-nourished white female who appears her stated age. She is alert and orientated. Her affect is appropriate. Her speech is fluent. HEENT: Normocephalic, atraumatic. Extraocular eye muscles are intact. Mucous membranes are moist. ABDOMEN: She complains of upper quadrant abdominal pain that radiates from the center of her abdomen into the left quadrant, towards her back. Recent flare of her pancreatitis. MUSCULOSKELETAL: Without significant kyphosis, scoliosis or lordosis. Muscle strength in her upper and lower extremities judged to be 5/5 in all extremities and muscle groups. PSYCHIATRIC: The patient appears happy today, very pleasant, talkative. Denies any psychiatric problems, but is taking his current antidepressant medicines. IMPRESSION: 1. Chronic pain secondary to pancreatitis with flare today. 2. Depression. 3. Complex medical management regarding opioids under terms of written opioid agreement. 4. Hypertension. We reviewed the fact that opiate medications are being used to provide analgesia adequate to support activities of daily living, not attempting to achieve a specific pain score on the 0-10 Visual Analog Scale. The current opiate medications are providing sufficient analgesia to allow the patient to participate in activities of daily living. The patient is not exhibiting any aberrant behavior suggestive of drug diversion. The patient is not having any adverse reactions to medications. The patient is not suffering from daytime somnolence or mental acuity changes. The patient is managing opiate-induced constipation with appropriate ouft-nlo-fgnzoxs agents and dietary considerations. The patient was counseled on concern for caution with operating a motor vehicle while using opiate medications. A physical exam was performed and the patient's functional status was evaluated. All patients with back pain were advised against the bed rest greater than 4 days and were advised to return to normal activities. Pain score assessment was noted and the treatment plan was reviewed with the patient. All current medications, both prescribed and OTC were reviewed and reconciled on the electronic medical record. Tobacco screening was accomplished and smoking cessation was advised when indicated. BMI was noted and diet/exercise modification was recommended for all patients following outside normal [facility] [address] [place] [address] PAIN MANAGEMENT CONSULTATION Name: GABRIELE MONTALVO Room #: REG [facility] M..#: [id number] Admission: 11/10/18 ������������������ Attend Phys: Meka Garcia Discharge: ������������������ Date of : 51 Report #: [id number] parameters. I reviewed with the patient today their responsibilities to safeguard prescription medications, reviewed their responsibility to utilize medications only as prescribed by the physician. They are to seek and receive pain medications only from 1 physician group ( [facility]). They are to use 1 pharmacy and keep the clinic informed if they change pharmacies. Their responsibilities include making followup visits in a timely fashion and to avoid abrupt discontinuation of medication usage. Their responsibilities further include bringing their medications (bottles from the pharmacy with residual pills) to the visit for possible confirmation of pill counts and the patient understands it is their responsibility to submit to random drug screens to ensure both that the medications prescribed are present, and that no other controlled substances are present. All prescriptions provided today were generated electronically. PLAN: 1. We discussed treatment options with the patient today. The patient's pain is increased due to a pancreatitis flare. She is trying to not go to the Emergency Room, has been drinking plenty of fluids at home and not eating any foods. Her medications have been helpful in controlling her ongoing pain. 2. Scripts given today for oxycodone 5 mg, #60 for today and 4-week release. Per the CDC guidelines, this places the patient at [address] below the CDC guidelines. This has been a significant decrease in her medications that she had once taken in the past. Dr. Chivo Tong did come and see the patient as well and collaborated with care today. ��������������������������������������������� <ELECTRONICALLY SIGNED> ���������������������������������������� By: Meka Garcia ��������������������������������������������� 11/11/18 0751 [id number] Meka Garcia /nt
== END ==
LOC: PAIN 06:44
DX: K86.1 Other chronic pancreatitis (principal); I10 Essential (primary) hypertension; F32.9 Major depressive disorder, single episode, unspecified; Z88.8 Allergy status to other drugs, medicaments and biological substances; Z79.899 Other long term (current) drug therapy; Z88.0 Allergy status to penicillin

== ENCOUNTER → 2019-01-07 | Outpatient (CLI) | payer OTHER ==
[~2019-01-07] VITALS: Ht 172.7 cm; Wt 88.5 kg
[~2019-01-07] MED LIST changes: +SILENOR3 MG PO
[2019-01-07 13:42] VITALS: BP 129/86
--- NOTE | 2019-01-07 13:44 | NUR ---
Pain Clinic Assessment: 1. History of Osteoarthritis: NO History of Rheumatoid Arthritis: NO 2. Height: 5 ft. 8 in. 172.7 cm. Weight: 195.0 lb. oz. 88.452 kg. Patient's BMI: 29.7 3. Vital Signs: BP: 129/86 Pulse: 95 Resp: 16 Temp: 02 Sat: 94 ECG Mon: 4. Pain Intensity: 4 5. Fall Risk: Dizziness: N Needs help standing or walking: N Fallen in the last 3 months: N Fall risk comments: seen by Dr for crystals in ears and has had 4 treatments also doing therapy for balance 6. Patient on Blood Thinner: None 7. History of Hypertension: Y 8. Opioid Therapy greater than 6 weeks: Y Opiate Contract Signed: 08/09/17 9. Risk Assessment Tool Provided: LOW RISK-4 10. Functional Assessment Tool: 53/70 11. Recreational Drug Use: Never Drug Type: Tobacco Use: Former Smoker Tobacco Type: Amount or Packs/day: How Many Years: Alcohol Use: No Frequency: Quant:
--- NOTE | 2019-01-08 10:31 | HPC ---
[facility] [address] [place] [address] PAIN MANAGEMENT CONSULTATION Name: GABRIELE MONTALVO Room #: REG [facility].#: [id number] Admission: 01/07/19 ������������������ Attend Phys: Meka Garcia Discharge: ������������������ Date of : 51 Report #: [id number] THIS REPORT FOR: //name// CC: Meka Garcia Meghann Dino DATE OF SERVICE: 01/07/2019 CHIEF COMPLAINT: Chronic abdominal pain secondary to pancreatitis. HISTORY OF PRESENT ILLNESS: This is a very pleasant 63-year-old female who returns to the pain clinic today for her medication that she uses to take for her chronic pancreatitis. She tells me that she did have a flare up the past week because she ate Cam[place]onian food, she has been in bed for 7 days, she finally is feeling slightly better today, rating her pain score a 4/10. It is an aching, burning, sharp pain in her abdomen that radiates from the center of her abdomen to the left side into her back. She tells me that medications, lying down and leaning forward are very beneficial. She denies any problems with constipation. Since she had this recent flare, she had lots of diarrhea. The patient would like a refill of her oxycodone today. ALLERGIES: VISTARIL, CODEINE AND AMPICILLIN. CURRENT LIST OF MEDICATIONS: Silenor, oxycodone 5 mg b.i.d., melatonin, Lopressor 50 mg daily, Glucophage 500 mg 3 times a day, clonazepam 1 mg 4 times a day, Effexor 150 mg daily, Pravachol 40 mg daily, aspirin 325 mg daily and Zofran p.r.n. PQRS: 1. She is not being treated for osteoarthritis or rheumatoid arthritis. 2. Height is 5 feet 8 inches, weight is 195 and BMI is ____. 3. Vital signs: 129/86, pulse is 95, respirations 16 and oxygen sat is 94. 4. Pain score 4/10. 5. Fall risk. Denies dizziness. Does not need help walking or standing and has not fallen in the last 3 months. 6. Not on any blood thinners. She does take medicine for hypertension. 7. Opioid therapy is greater than 6 weeks; therefore, an opiate signed contract is on the chart. Risk assessment tool is low. Functional assessment is 53/70 8. Recreational drug use, she denies. She is a former smoker and does not drink alcohol. We did check the prescription monitoring system. The patient is due to fill her medications next week and there is a recent drug screen on the chart that is appropriate for her medications. She tells me [place] [address] PAIN MANAGEMENT CONSULTATION Name: GABRIELE MONTALVO Room #: REG SORIN Haas#: [id number] Admission: 01/07/19 ������������������ Attend Phys: Meka Garcia Discharge: ������������������ Date of : 51 Report #: [id number] PHYSICAL EXAMINATION: GENERAL: This is a well-developed, well-nourished, well-hydrated female who appears her stated age. She is alert and orientated and her affect is appropriate. Her speech is fluent. HEENT: Normocephalic and atraumatic. Extraocular eye muscles are intact. Mucous membranes are moist. ABDOMEN: She complains of upper quadrant abdominal pain that radiates from the center of her abdomen around the left quadrant into her back and occasionally straight into her abdomen and cramping today. MUSCULOSKELETAL: Without significant kyphosis, scoliosis or lordosis. PSYCHIATRIC: The patient appears pleasant today and talkative. Denies any psychiatric problems, she is taking antidepressants and her affect is upbeat today. IMPRESSION: 1. Chronic pain secondary to pancreatitis, recent flare. 2. Depression. 3. Hypertension. 4. Complex medical management under terms of written opioid agreement. We reviewed the fact that opiate medications are being used to provide analgesia adequate to support activities of daily living, not attempting to achieve a specific pain score on the 0-10 Visual Analog Scale. The current opiate medications are providing sufficient analgesia to allow the patient to participate in activities of daily living. The patient is not exhibiting any aberrant behavior suggestive of drug diversion. The patient is not having any adverse reactions to medications. The patient is not suffering from daytime somnolence or mental acuity changes. The patient is managing opiate-induced constipation with appropriate tfdv-vnt-wqhtfly agents and dietary considerations. The patient was counseled on concern for caution with operating a motor vehicle while using opiate medications. A physical exam was performed and the patient's functional status was evaluated. All patients with back pain were advised against the bed rest greater than 4 days and were advised to return to normal activities. Pain score assessment was noted and the treatment plan was reviewed with the patient. All current medications, both prescribed and OTC were reviewed and reconciled on the electronic medical record. Tobacco screening was accomplished and smoking cessation was advised when indicated. BMI was noted and diet/exercise modification was recommended for all patients following outside normal parameters. I reviewed with the patient today their responsibilities to safeguard prescription medications, reviewed their responsibility to utilize medications only as prescribed by the physician. They are to seek and receive pain medications only from 1 physician group ([facility]). They are to use [address] [address] PAIN MANAGEMENT CONSULTATION Name: GABRIELE MONTALVO Room #: REG [facility]#: [id number] Admission: 01/07/19 ������������������ Attend Phys: Meka Garcia Discharge: ������������������ Date of : 51 Report #: [id number] pharmacy and keep the clinic informed if they change pharmacies. Their responsibilities include making followup visits in a timely fashion and to avoid abrupt discontinuation of medication usage. Their responsibilities further include bringing their medications (bottles from the pharmacy with residual pills) to the visit for possible confirmation of pill counts and the patient understands it is their responsibility to submit to random drug screens to ensure both that the medications prescribed are present, and that no other controlled substances are present. All prescriptions provided today were generated electronically. PLAN: 1. We discussed treatment options with the patient today. The patient did eat some Cam[place] food and had a recent flare of her pancreatitis that is better now. Her medication was very helpful in getting her through this flare. She takes her oxycodone sparingly 1 to 2 tablets a day. Refills given for her oxycodone 5 mg/325, #60 for today and 4 weeks release. 2. According to the CDC guidelines this places her at 50 morphine milliequivalents well below their guidelines. 3. The patient is seen with Dr. Doug Giles today who collaborated care. The patient will call for an appointment in 2 months. ��������������������������������������������� <ELECTRONICALLY SIGNED> ���������������������������������������� By: Meka Garcia ��������������������������������������������� 01/08/19 1031 1510 0130 Meka teran
== END ==
LOC: PAIN 07:06
DX: K85.90 Acute pancreatitis without necrosis or infection, unspecified (principal); I10 Essential (primary) hypertension; F32.9 Major depressive disorder, single episode, unspecified; Z79.891 Long term (current) use of opiate analgesic

== ENCOUNTER 2019-03-03 12:06 | Inpatient (IN) | payer OTHER ==
[~2019-03-03] VITALS: Ht 172.7 cm; Wt 90.0 kg
--- NOTE | ~2019-03-03 | EKG ---
[address] [place] [address] ELECTROCARDIOGRAM REPORT Name: GABRIELE MONTALVO Room #: 218-P ADM IN M.R.#: [id number] Admission: 03/03/19 Attend Phys: Terrence Jain MD Discharge: Date of : 51 Report #: [id number] THIS REPORT FOR: //name// [facility] Test Date: 2019-03-04 Test Time: 07:38:58 Pat Name: GABRIELE MONTALVO Department: Room: 218 P Gender: F Product Support Sales Representative: CARLOS ENRIQUE : 1955 Requested By: Terrence Jain Order Number: [id number] MD: Measurements Intervals [place] Rate: 59 P: 6 ID: 142 QRS: -45 QRSD: 108 T: -45 QT: 468 QTc: 464 Interpretive Statements Sinus rhythm Left anterior fascicular block Abnormal R-wave progression, late transition Left ventricular hypertrophy Nonspecific T abnormalities, diffuse leads Compared to ECG 03/03/2019 12:35:33 No significant changes [email or web address] By: 0738 0738 Epiphany Epiphany, /EPI
[2019-03-03 12:06] VITALS: BP 181/100
[2019-03-03 13:26] LABS: ABSOLUTE NEUTROPHILS 4.8 thou/uL (1.4-8.2); BASOPHILS 0.5 % (0.0-2.0); EOSINOPHILS 1.8 % (0.0-3.0); HEMATOCRIT 39.2 % (37.0-47.0); HEMOGLOBIN 13.7 gm/dL (12.0-15.0); LYMPHOCYTES 36.8 % (24.0-44.0); MCH 30.8 pg (26.0-34.0); MCHC 34.8 g/dL (28.0-37.0); MCV 88.5 fL (80.0-100.0); MONOCYTES 7.9 % (1.0-8.0); PLATELET COUNT 215 thou/uL (150-400); RBC 4.43 mil/uL (4.20-5.00); RDW 13.1 % (10.5-14.5)
[2019-03-03 13:48] LABS: ANION GAP 13 mmol/L (7-16); BUN 28 mg/dL (7-18); CALCIUM 9.2 mg/dL (8.5-10.1); CHLORIDE 104 mmol/L (98-107); CO2 22 mmol/L (21-32); CREATININE 1.2 mg/dL (0.6-1.0); GLUCOSE 190 mg/dL (74-106); POTASSIUM 3.8 mmol/L (3.5-5.1); SODIUM 139 mmol/L (136-145)
[2019-03-03 13:58] LABS: ALBUMIN 4.2 g/dL (3.4-5.0); SGOT 22 U/L (15-37); SGPT 31 U/L (30-65); TOTAL BILIRUBIN 0.4 mg/dL (<0.1-1.0); TOTAL PROTEIN 8.1 g/dL (6.4-8.2); TROPONIN-I <0.06 ng/mL (<0.06)
--- NOTE | 2019-03-03 16:02 | EKG ---
[address] [place] [address] ELECTROCARDIOGRAM REPORT Name: GABRIELE MONTALVO Room #: 170-9 ADM IN M.R.#: [id number] Admission: 03/03/19 Attend Phys: Terrence Jain MD Discharge: Date of : 51 Report #: [id number] THIS REPORT FOR: //name// [facility] ED Test Date: 2019-03-03 Test Time: 12:35:33 Pat Name: GABRIELE MONTALVO Department: Room: 170 Gender: F Traffic Ii Manager: anum : 1955 Requested By: Ivette Merlos Order Number: [id number] MD: Ted Kuo Measurements Intervals [place] Rate: 68 P: 12 TN: 151 QRS: -46 QRSD: 114 T: -9 QT: 436 QTc: 464 Interpretive Statements Sinus rhythm Left anterior fascicular block Abnormal R-wave progression, early transition Left ventricular hypertrophy Borderline T abnormalities, anterior leads Baseline wander in lead(s) V4,V5 Compared to ECG 11/03/2015 17:02:22 Electronically Signed On 03-03-2019 16:02:47 CDT by Ted Kuo [email or web address] <ELECTRONICALLY SIGNED> By: Ted Kuo MD 03/03/19 1602 1235 1235 Ted Kuo MD /EPI
[2019-03-03 17:13] VITALS: BP 169/82
[2019-03-03 17:30] VITALS: BP 136/57
[2019-03-03 18:07] VITALS: BP 143/86
[2019-03-03 19:15] VITALS: BP 159/72
[2019-03-03 19:45] VITALS: BP 135/89
--- NOTE | 2019-03-03 20:18 | NUR ---
AT 1800, ADMITTED TO CCU RM # [id number] WITH NUMBNESS/DISCOMFORT IN L NECK, RADIATING DOWN L ARM. VITAL SIGNS OBTAINED, PLACED ON MONITOR. REPORT RECEIVED FROM KARI DILLARD. PT ALERT/ORIENTED, TALKING ON PHONE. REPORT GIVEN TO KARI VELAZQUEZ.
[2019-03-04 04:00] VITALS: BP 100/58
[2019-03-04 04:49] LABS: ANION GAP 9 mmol/L (7-16); BUN 22 mg/dL (7-18); CHLORIDE 107 mmol/L (98-107); CHOLESTEROL 173 mg/dL (<200); CO2 25 mmol/L (21-32); CREATININE 0.9 mg/dL (0.6-1.0); GLUCOSE 142 mg/dL (74-106); HDL CHOLESTEROL 37 mg/dL (>40); LDL CHOLESTEROL 97 mg/dL (<100); MAGNESIUM 1.6 mg/dL (1.8-2.4); POTASSIUM 3.9 mmol/L (3.5-5.1); SODIUM 141 mmol/L (136-145); TC:HDL 4.7 Ratio (Not establshd); TRIGLYCERIDE 195 mg/dL (<150); TROPONIN-I <0.06 ng/mL (<0.06); VLDL 39 mg/dL (<40)
[2019-03-04 04:58] LABS: SERUM ASSESSMENT Clear
--- NOTE | 2019-03-04 05:32 | NUR ---
DENIES CHEST PAIN.COMPLAIN OF NUMBNESS AND TINGLING ON HER LEFT ARM AND NECK. ADMISSION DONE.GABAPENTIN WAS GIVEN.MONITOR SHOWS SR.NPO AFTER MIDNIGHT.WILL MONITOR AND CONTINUE POC.
[2019-03-04 08:00] VITALS: BP 100/61
--- NOTE | 2019-03-04 08:45 | EKG ---
[place] [address] [address] [place] [address] ELECTROCARDIOGRAM REPORT Name: GABRIELE MONTALVO Room #: 218-P ADM IN M.R.#: [id number] Admission: 03/03/19 Attend Phys: Terrence Jain MD Discharge: Date of : 51 Report #: [id number] THIS REPORT FOR: //name// [facility] Test Date: 2019-03-04 Test Time: 07:38:58 Pat Name: GABRIELE MONTALVO Department: Room: 218 P Gender: F Contract Writer: CARLOS ENRIQUE : 1955 Requested By: Rachelle Momin Order Number: [id number] MD: Justus Benjamin Measurements Intervals [place] Rate: 59 P: 6 CA: 142 QRS: -45 QRSD: 108 T: -45 QT: 468 QTc: 464 Interpretive Statements Sinus rhythm Left anterior fascicular block Abnormal R-wave progression, late transition Left ventricular hypertrophy Nonspecific T abnormalities, diffuse leads Compared to ECG 03/03/2019 12:35:33 T-wave abnormality is more pronounced Electronically Signed On 03-04-2019 8:45:10 CDT by Justus Benjamin [email or web address] <ELECTRONICALLY SIGNED> By: Justus Benjamin MD, [facility] 03/04/19 0845 Justus Benjamin MD, [facility] /EPI
[2019-03-04 12:10] VITALS: BP 92/69
[2019-03-04] MEDS ORDERED: BACLOFEN20 MG PO ×2 (13:01→14:03)
[2019-03-04] MEDS ORDERED: NEURONTIN 300300 M1 PO ×2 (13:01→14:02)
[2019-03-04] MEDS ORDERED: MEDROLDOSEPACK PO ×2 (13:01→14:03)
[2019-03-04 13:29] VITALS: BP 92/69
--- NOTE | 2019-03-04 14:15 | NUR ---
ASSESSMENT CHARTED. PT ALERT AND ORIENTED. VSS. REPORT HAVING LEFT ARM PAIN BUT DENIED THE NEED FOR PAIN MED. SEEN BY DR DE LEON AND DR. EVERETT. ORDERS GIVEN TO DISCHARGE PT TO HOME. DISCHARGE INSTRUCTIONS GIVEN TO PT. PT VERBERLIZED UNDERSTANDING.
== END 2019-03-04 15:02 | disposition home or self-care (01) | DRG 74 ==
LOC: ER 12:06 → EROBS 14:53 → 2N 14:53
PROVIDERS: Physician Assistant; ADMIT Internal Medicine
DX: M54.12 Radiculopathy, cervical region (principal); K86.1 Other chronic pancreatitis; R07.9 Chest pain, unspecified; I10 Essential (primary) hypertension; E78.5 Hyperlipidemia, unspecified; F32.9 Major depressive disorder, single episode, unspecified; G89.4 Chronic pain syndrome; F41.9 Anxiety disorder, unspecified; M19.90 Unspecified osteoarthritis, unspecified site; E11.40 Type 2 diabetes mellitus with diabetic neuropathy, unspecified; E66.9 Obesity, unspecified; Z68.30 Body mass index [BMI] 30.0-30.9, adult; Z90.49 Acquired absence of other specified parts of digestive tract; Z90.710 Acquired absence of both cervix and uterus; Z87.891 Personal history of nicotine dependence; Z79.84 Long term (current) use of oral hypoglycemic drugs; Z79.82 Long term (current) use of aspirin; Z79.899 Other long term (current) drug therapy; Z88.5 Allergy status to narcotic agent; Z88.8 Allergy status to other drugs, medicaments and biological substances; Z83.3 Family history of diabetes mellitus; Z82.49 Family history of ischemic heart disease and other diseases of the circulatory system; Z83.49 Family history of other endocrine, nutritional and metabolic diseases
CPT/HCPCS: 10081

== ENCOUNTER → 2019-03-11 | Outpatient (CLI) | payer OTHER ==
[~2019-03-11] VITALS: Ht 172.7 cm; Wt 89.9 kg
[~2019-03-11] MED LIST changes: +BACLOFEN20 MG PO; +LIORESAL 10 MG10 MG PO; +MEDROLDOSEPACK PO; +NEURONTIN 300300 M1 PO
[2019-03-11 10:02] VITALS: BP 149/98
--- NOTE | 2019-03-11 10:09 | NUR ---
Pain Clinic Assessment: 1. History of Osteoarthritis: NO History of Rheumatoid Arthritis: NO 2. Height: 5 ft. 8 in. 172.7 cm. Weight: 198.2 lb. oz. 89.903 kg. Patient's BMI: 30.1 3. Vital Signs: BP: 149/98 Pulse: 73 Resp: 16 Temp: 02 Sat: 97 ECG Mon: 4. Pain Intensity: 6 5. Fall Risk: Dizziness: N Needs help standing or walking: N Fallen in the last 3 months: N Fall risk comments: seen by Dr for crystals in ears and has had 4 treatments also doing therapy for balance 6. Patient on Blood Thinner: None 7. History of Hypertension: Y 8. Opioid Therapy greater than 6 weeks: Y Opiate Contract Signed: 08/09/17 9. Risk Assessment Tool Provided: LOW RISK-4 10. Functional Assessment Tool: 53/70 11. Recreational Drug Use: Never Drug Type: Tobacco Use: Former Smoker Tobacco Type: Amount or Packs/day: How Many Years: Alcohol Use: No Frequency: Quant:
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
== END ==
LOC: PAIN 06:55
DX: M54.12 Radiculopathy, cervical region (principal); K86.1 Other chronic pancreatitis; I10 Essential (primary) hypertension; F32.9 Major depressive disorder, single episode, unspecified; Z79.899 Other long term (current) drug therapy; Z79.891 Long term (current) use of opiate analgesic; Z79.82 Long term (current) use of aspirin; Z88.8 Allergy status to other drugs, medicaments and biological substances

== ENCOUNTER → 2019-03-25 | Outpatient (CLI) | payer OTHER ==
[~2019-03-25] VITALS: Ht 172.7 cm; Wt 91.9 kg
[2019-03-25 09:19] VITALS: BP 163/89
--- NOTE | 2019-03-25 09:20 | NUR ---
Pain Clinic Assessment: 1. History of Osteoarthritis: NO History of Rheumatoid Arthritis: NO 2. Height: 5 ft. 8 in. 172.7 cm. Weight: 202.6 lb. oz. 91.899 kg. Patient's BMI: 30.8 3. Vital Signs: BP: 163/89 Pulse: 91 Resp: Temp: 02 Sat: 97 ECG Mon: 4. Pain Intensity: 7 5. Fall Risk: Dizziness: N Needs help standing or walking: N Fallen in the last 3 months: N Fall risk comments: seen by Dr for crystals in ears and has had 4 treatments also doing therapy for balance 6. Patient on Blood Thinner: None 7. History of Hypertension: Y 8. Opioid Therapy greater than 6 weeks: Y Opiate Contract Signed: 08/09/17 9. Risk Assessment Tool Provided: LOW RISK-4 10. Functional Assessment Tool: 53/70 11. Recreational Drug Use: Never Drug Type: Tobacco Use: Former Smoker Tobacco Type: Amount or Packs/day: How Many Years: Alcohol Use: No Frequency: Quant:
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
== END | disposition home or self-care (01) ==
LOC: PAIN 06:55
DX: M54.2 Cervicalgia (principal); M54.12 Radiculopathy, cervical region; F32.9 Major depressive disorder, single episode, unspecified; Z79.899 Other long term (current) drug therapy; Z79.82 Long term (current) use of aspirin

== ENCOUNTER → 2019-05-13 | Outpatient (CLI) | payer OTHER ==
[~2019-05-13] VITALS: Ht 172.7 cm; Wt 85.3 kg
[2019-05-13 08:12] VITALS: BP 147/92
--- NOTE | 2019-05-13 08:13 | NUR ---
Pain Clinic Assessment: 1. History of Osteoarthritis: NO History of Rheumatoid Arthritis: NO 2. Height: 5 ft. 8 in. 172.7 cm. Weight: 188.0 lb. oz. 85.276 kg. Patient's BMI: 28.6 3. Vital Signs: BP: 147/92 Pulse: 92 Resp: 16 Temp: 02 Sat: 97 ECG Mon: 4. Pain Intensity: 4 5. Fall Risk: Dizziness: N Needs help standing or walking: N Fallen in the last 3 months: Y Fall risk comments: seen by Dr for crystals in ears and has had 4 treatments also doing therapy for balance 6. Patient on Blood Thinner: None 7. History of Hypertension: Y 8. Opioid Therapy greater than 6 weeks: Y Opiate Contract Signed: 08/09/17 9. Risk Assessment Tool Provided: LOW RISK-4 10. Functional Assessment Tool: 53/70 11. Recreational Drug Use: Never Drug Type: Tobacco Use: Former Smoker Tobacco Type: Amount or Packs/day: How Many Years: Alcohol Use: No Frequency: Quant:
--- NOTE | 2019-06-02 09:03 | HPC ---
[facility] [place] [place] [address] PAIN MANAGEMENT CONSULTATION Name: GABRIELE MONTALVO [id number] Admission: 05/13/19 Attend Phys: Jennifer Giles MD Discharge: Date of : 51 Report #: [id number] THIS REPORT FOR: //name// CC: Meghann Giles DATE OF SERVICE: 05/13/2019 CHIEF COMPLAINT: Pain in the neck down into the arms. HISTORY: The patient is a 63-year-old female who has been seen in the pain clinic because of chronic pain. Does have a history of pancreatitis. Has had some pain and discomfort in both shoulders as well as in her arms. Notes that her pain has worsened over the last 2 weeks. Has some numbness and tingling in her arms. She has returned today for medication renewal. She underwent a cervical epidural steroid injection in March. She may consider another injection in the future, at this point, we will renew her medications. ALLERGIES: VISTARIL, CODEINE, AMPICILLIN. CURRENT MEDICATIONS: Gabapentin 300 mg 1 p.o. t.i.d., oxycodone 5 mg 1 p.o. b.i.d., doxepin 30 mg at bedtime, melatonin 10 mg, metoprolol 50 mg, metformin 500 mg, clonazepam 1 mg 4 times daily, Effexor 150 mg, pravastatin 40 mg, aspirin 81 mg and Zofran p.r.n. PAIN CLINIC ASSESSMENT AND PQRS: 1. The patient is not being treated for rheumatoid arthritis. Has had some arthritic pain in the neck. 2. Height 5 feet 8 inches, weight 188 pounds, BMI 28. 3. Vital signs: Blood pressure 147/92, heart rate 92, respiratory rate 16, room air saturation 97%. 4. Pain intensity /10. 5. Fall history: The patient has not fallen since we saw her last. 6. Blood thinner. The patient is not on a blood thinning medication. 7. Hypertension. The patient is being treated for hypertension. 8. Opioids greater than 6 weeks. The patient received medication from one source the pain clinic. 9. Risk assessment tool, low for opioid use. 10. Functional assessment tool 53/70. 11. Recreational drug use: The patient denies. 12. Tobacco: The patient is a former smoker. 13. Alcohol. The patient denies use of alcoholic beverages. PHYSICAL EXAMINATION: GENERAL: The patient is a well-developed, well-nourished, somewhat obese white female. Appears her stated age. She is alert and oriented x 3. Her affect is [address] [address] PAIN MANAGEMENT CONSULTATION Name: GABRIELE MONTALVO Room #: REG [facility] Waldo#: [id number] Admission: 05/13/19 Attend Phys: Jennifer Giles MD Discharge: Date of : 51 Report #: [id number] appropriate. Speech is fluent. HEENT: Normocephalic, atraumatic. Extraocular eye muscles intact. Sclerae nonicteric. Mucous membranes are moist. NECK: The patient has some pain and discomfort in the neck area with pain, which has radiated down into her shoulders and both arms with numbness and tingling. ABDOMEN: Nontender. HEART: Regular rate. MUSCULOSKELETAL: Without significant scoliosis, kyphosis or lordosis. The patient has pain, which radiates in the area of the C5-C6 area of her neck and down to her arms. IMPRESSION: 1. History of chronic pain secondary to pancreatitis. 2. Cervical radiculopathy. 3. Depression. 4. Hypertension. 5. Complex medical regimen using opioid medications. RECOMMENDATIONS: We discussed treatment options with the patient. At this juncture, we will continue with her medications of gabapentin 300 mg, oxycodone 5 mg p.o. b.i.d. The patient will consider the possibility of a cervical epidural steroid injection in the future. We would like to thank you for letting us participate in her care. We hope she continues to improve. <ELECTRONICALLY SIGNED> By: Jennifer Giles MD 06/02/19 0903 [id number] Jennifer Giles MD /[facility]
== END ==
LOC: PAIN 06:50
DX: M54.12 Radiculopathy, cervical region (principal); F32.9 Major depressive disorder, single episode, unspecified; I10 Essential (primary) hypertension; Z79.899 Other long term (current) drug therapy; Z88.8 Allergy status to other drugs, medicaments and biological substances; Z79.891 Long term (current) use of opiate analgesic

== ENCOUNTER → 2019-06-12 | Outpatient (CLI) | payer OTHER ==
[~2019-06-12] VITALS: Ht 172.7 cm; Wt 89.0 kg
--- NOTE | ~2019-06-12 | HPC ---
[facility] [address] [place] [address] PAIN MANAGEMENT CONSULTATION Name: GABRIELE MONTALVO Room #: REG [facility].#: [id number] Admission: 06/12/19 Attend Phys: Jennifer Giles MD Discharge: Date of : 51 Report #: [id number] THIS REPORT FOR: //name// CC: Meghann Giles DATE OF SERVICE: 06/12/2019 CHIEF COMPLAINT: Continued pain in the neck and down into the arm. HISTORY: The patient is a 63-year-old female who is followed in the pain clinic. She has a number of problems. Pancreatitis is one of her problems. She feels that her current medication is helpful. She has a second problem. Has pain in her neck and into both arms. Pain has worsened over the last few weeks. She has been experiencing some numbness and tingling in arms. She has returned today with the hopes of undergoing a cervical epidural steroid injection to help quell the pain and discomfort she is experiencing. Rates her pain as a 6-7/10. Has found some benefit from her current medications. ALLERGIES: VISTARIL, CODEINE, AMPICILLIN. CURRENT MEDICATIONS: Gabapentin 300 mg 1 p.o. t.i.d., oxycodone 5 mg 1 p.o. b.i.d., doxepin 30 mg at bedtime, melatonin 10 mg, metoprolol 50 mg, metformin 500 mg, clonazepam 1 mg 4 times daily, Effexor 150 mg, pravastatin 40 mg, aspirin 81 mg, and Zofran. PAIN CLINIC AND PQRS: 1. The patient is not being treated for rheumatoid arthritis. The patient does have some arthritic changes and pain in her neck. 2. Height 5 feet 8 inches, weight 196 pounds, BMI is 29.8. 3. Vital signs: Blood pressure 134/90, pulse 99, respiratory rate 16, room air saturation 97%. 4. Pain intensity 6-7/10. PHYSICAL EXAMINATION: GENERAL: The patient is a well-developed, well-nourished white female. Appears her stated age. She is somewhat obese. Her affect is appropriate. Speech is fluent. HEENT: Normocephalic, atraumatic. Extraocular eye muscles intact. Sclerae nonicteric. Mucous membranes are moist. NECK: With some pain and discomfort in the neck area. The patient is having pain and discomfort that radiates in the left as well as in the right arm. There is pain and discomfort in her shoulders. Notes some numbness and tingling down further in her arms and forearm areas. ABDOMEN: Nontender. HEART: Regular rate. [facility] [address] [place] [address] PAIN MANAGEMENT CONSULTATION Name: GABRIELE MONTALVO Room #: REG [facility]#: [id number] Admission: 06/12/19 Attend Phys: Jennifer Giles MD Discharge: Date of : 51 Report #: [id number] MUSCULOSKELETAL: Without significant scoliosis, kyphosis or lordosis. The patient has pain and discomfort that radiates in the C5-C6 area of her neck and down into her arms. IMPRESSION: 1. History of chronic pain secondary to chronic pancreatitis. 2. Cervical radiculopathy in the C5-C6 area with pain radiating down into both arms. 3. Depression. 4. Hypertension. 5. Complex medical regimen using opioid medications to help quell her pain and discomfort. RECOMMENDATIONS: We discussed treatment options with the patient. Risks and benefits of a cervical epidural steroid injection were discussed. They include but are not limited to infection, worsening of pain, no improvement in pain, spinal headache, nerve damage and the patient elects to proceed. PROCEDURE NOTE: The patient was taken to the procedure area. She was then assisted in getting on the examination table. A pillow was placed under her shoulders to bolster and improve positioning. Fluoroscopy using anterior, posterior as well as lateral viewing were implemented. The patient's neck was sterilely prepped with a Betadine solution. This was allowed to dry. A 0.25% bupivacaine was infiltrated using a 25-gauge needle at the C7-T1 interspace. A 17-gauge Tuohy with loss of resistance technique at the C7-T1 interspace was undertaken. There was no CSF, heme or paresthesia. A total of 120 mg triamcinolone was injected. The patient tolerated the procedure well. There were no complications. She remained in the Pain Clinic for an appropriate amount of time. She will follow up in the future as needed. Total of 9 seconds fluoroscopy time was used. The patient's pain was 6 at the time of discharge. We would like to thank you for letting us participate in her care. We hope she continues to improve. By: [id number] [id number] Jennifer Giles MD /christian
[2019-06-12 09:42] VITALS: BP 134/90
--- NOTE | 2019-06-12 10:14 | NUR ---
Pain Clinic Assessment: 1. History of Osteoarthritis: NECK BACK History of Rheumatoid Arthritis: NO 2. Height: 5 ft. 8 in. 172.7 cm. Weight: 196.2 lb. oz. 88.996 kg. Patient's BMI: 29.8 3. Vital Signs: BP: 134/90 Pulse: 99 Resp: 16 Temp: 02 Sat: 97 ECG Mon: 4. Pain Intensity: 6-7 5. Fall Risk: Dizziness: N Needs help standing or walking: N Fallen in the last 3 months: N Fall risk comments: seen by for crystals in ears and has had 4 treatments also doing therapy for balance 6. Patient on Blood Thinner: None 7. History of Hypertension: Y 8. Opioid Therapy greater than 6 weeks: Y Opiate Contract Signed: 08/09/17 9. Risk Assessment Tool Provided: LOW RISK-4 10. Functional Assessment Tool: 53/70 11. Recreational Drug Use: Never Drug Type: Tobacco Use: Former Smoker Tobacco Type: Amount or Packs/day: How Many Years: Alcohol Use: No Frequency: Quant:
== END | disposition home or self-care (01) ==
LOC: PAIN 07:31
DX: M54.12 Radiculopathy, cervical region (principal); I10 Essential (primary) hypertension; F32.9 Major depressive disorder, single episode, unspecified; E66.9 Obesity, unspecified; Z68.29 Body mass index [BMI] 29.0-29.9, adult; Z88.8 Allergy status to other drugs, medicaments and biological substances; Z79.899 Other long term (current) drug therapy; Z79.82 Long term (current) use of aspirin; Z87.891 Personal history of nicotine dependence

== ENCOUNTER → 2019-07-10 | Outpatient (CLI) | payer OTHER ==
[~2019-07-10] VITALS: Ht 172.7 cm; Wt 88.2 kg
[2019-07-10 12:56] VITALS: BP 124/82
--- NOTE | 2019-07-10 13:16 | NUR ---
Pain Clinic Assessment: 1. History of Osteoarthritis: NECK BACK History of Rheumatoid Arthritis: NO 2. Height: 5 ft. 8 in. 172.7 cm. Weight: 194.4 lb. oz. 88.179 kg. Patient's BMI: 29.6 3. Vital Signs: BP: 124/82 Pulse: 75 Resp: 16 Temp: 02 Sat: 100 ECG Mon: 4. Pain Intensity: 2 5. Fall Risk: Dizziness: N Needs help standing or walking: N Fallen in the last 3 months: N Fall risk comments: seen by Dr for crystals in ears and has had 4 treatments also doing therapy for balance 6. Patient on Blood Thinner: None 7. History of Hypertension: Y 8. Opioid Therapy greater than 6 weeks: Y Opiate Contract Signed: 08/09/17 9. Risk Assessment Tool Provided: LOW RISK-4 10. Functional Assessment Tool: 53/70 11. Recreational Drug Use: Never Drug Type: Tobacco Use: Former Smoker Tobacco Type: Amount or Packs/day: How Many Years: Alcohol Use: No Frequency: Quant:
--- NOTE | 2019-07-29 08:34 | HPC ---
[facility] [address] [place] [address] PAIN MANAGEMENT CONSULTATION Name: GABRIELE MONTALVO [facility] [id number] Admission: 07/10/19 Attend Phys: Jennifer Giles MD Discharge: Date of : 53 Report #: [id number] THIS REPORT FOR: //name// CC: Meghann Giles DATE OF SERVICE: 07/10/2019 CHIEF COMPLAINT: Neck and left arm pain. HISTORY: The patient is a 63-year-old female who has been seen in the pain clinic because of chronic pain. She has had some problems with her neck and left arm. She underwent a cervical epidural steroid injection in the past. She has noticed some benefits from these. Has a history of chronic pancreatitis. Feels that her medications are helpful. Rates her pain overall today as pretty good. She rates it as a 2/10. She notes that her medications are not causing any problems with her mentation. She is thinking clearly. Feels that the medications definitely are beneficial and able her to engage in activities, she would not be able to with as much comfort. ALLERGIES: VISTARIL, CODEINE, AMPICILLIN. CURRENT MEDICATIONS: Gabapentin 300 mg 1 p.o. t.i.d., oxycodone 5 mg 1 p.o. b.i.d., doxepin 30 mg at bedtime, melatonin 10 mg, metoprolol 50 mg, metformin 500 mg, clonazepam 1 mg 4 times daily, Effexor 150 mg, pravastatin 40 mg, aspirin 81 mg, Zofran. PAIN CLINIC ASSESSMENT AND PQRS: 1. The patient is not being treated for rheumatoid arthritis. Does have some arthritic changes in her upper neck area. 2. Height is 5 feet 8 inches, weight 194 pounds, BMI is 29.6. 3. Vital signs: Blood pressure 124/82, pulse 75, respiratory rate 16, room air saturation is 100%. 4. Pain intensity 08/10. 5. Fall history: The patient has not fallen in the last 3 months. The patient has had some problems with her balance. She has been told that she has crystals in her ear. She has undergone treatment for this. 6. Blood thinner. The patient is not on a blood thinning medication. 7. Hypertension. The patient is being treated for hypertension. 8. Opioids greater than 6 weeks. The patient received medication from one source the pain clinic. 9. Risk assessment tool, low for opioid use. 10. Functional assessment tool 53/70. 11. Recreational drug use: The patient denies. 12. Tobacco: The patient is a former tobacco smoker. 13. Alcohol. The patient denies frequent use of alcoholic beverages. [facility] [address] [place] [address] PAIN MANAGEMENT CONSULTATION Name: GABRIELE MONTALVO [facility] [id number] Admission: 07/10/19 Attend Phys: Jennifer Giles MD Discharge: Date of : 51 Report #: [id number] PHYSICAL EXAMINATION: GENERAL: The patient is a well-developed, well-nourished white female. Appears her stated age. She is alert and oriented x 3. Her affect is appropriate. Speech is fluent. HEENT: Normocephalic, atraumatic. Extraocular eye muscles intact. Sclerae nonicteric. Mucous membranes are moist. NECK: The patient has less discomfort in neck area. She is having less pain and discomfort in her shoulders. HEART: Regular rate. ABDOMEN: Nontender. Abdominal sounds are positive. MUSCULOSKELETAL: Lower extremity muscle strength judged to be 5/5 for the major muscle groups in the lower extremity. The patient does have some pain and discomfort in the C5-C6 area of her neck and into her arms. IMPRESSION: 1. History of chronic pain secondary to pancreatitis. 2. Cervical radiculopathy in the C5-C6 area improved with a cervical epidural steroid injection. 3. Depression. 4. Hypertension. 5. Complex medical management using opioids to help control pain. RECOMMENDATIONS: We discussed treatment options with the patient. At this juncture, we will continue with her medications. She feels that the medications are beneficial. She is aware that opioid medications can become less effective over time. She has taken her medication as prescribed. Still has some pain and discomfort associated with chronic pancreatitis. Has some discomfort in the upper neck area. Overall, she rates her pain as a 2/10. We will continue with her current medical regimen. A script for medications has been rewritten. She will continue with oxycodone 5 mg 1 p.o. b.i.d. She also will continue with Neurontin 300 mg 1 p.o. t.i.d. She will call us if she has any concerns. We would like to thank you for letting us participate in her care. We hope she continues to improve. <ELECTRONICALLY SIGNED> By: Jennifer Giles MD 07/29/19 0834 0830 0010 Jennifer Giles MD /[facility]
== END ==
LOC: PAIN 06:54
DX: G89.29 Other chronic pain (principal); M54.12 Radiculopathy, cervical region; F32.9 Major depressive disorder, single episode, unspecified; I10 Essential (primary) hypertension; Z88.1 Allergy status to other antibiotic agents; Z88.5 Allergy status to narcotic agent; Z79.891 Long term (current) use of opiate analgesic; Z79.899 Other long term (current) drug therapy

== ENCOUNTER → 2019-09-04 | Outpatient (CLI) | payer OTHER ==
[~2019-09-04] VITALS: Ht 172.7 cm; Wt 90.4 kg
[2019-09-04 08:03] VITALS: BP 167/92
--- NOTE | 2019-09-04 08:17 | NUR ---
Pain Clinic Assessment: 1. History of Osteoarthritis: NECK BACK History of Rheumatoid Arthritis: NO 2. Height: 5 ft. 8 in. 172.7 cm. Weight: 199.2 lb. oz. 90.357 kg. Patient's BMI: 30.3 3. Vital Signs: BP: 167/92 Pulse: 72 Resp: 18 Temp: 02 Sat: 94 ECG Mon: 4. Pain Intensity: 4 5. Fall Risk: Dizziness: Y Needs help standing or walking: N Fallen in the last 3 months: N Fall risk comments: seen by Dr for crystals in ears and has had 4 treatments also doing therapy for balance 6. Patient on Blood Thinner: None 7. History of Hypertension: Y 8. Opioid Therapy greater than 6 weeks: Y Opiate Contract Signed: 08/09/17 9. Risk Assessment Tool Provided: LOW RISK-4 10. Functional Assessment Tool: 53/70 11. Recreational Drug Use: Never Drug Type: Tobacco Use: Former Smoker Tobacco Type: Amount or Packs/day: How Many Years: Alcohol Use: No Frequency: Quant:
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
== END ==
LOC: PAIN 06:43
DX: M54.12 Radiculopathy, cervical region (principal); G89.29 Other chronic pain; I10 Essential (primary) hypertension; F32.9 Major depressive disorder, single episode, unspecified; Z88.0 Allergy status to penicillin; Z88.8 Allergy status to other drugs, medicaments and biological substances; Z68.30 Body mass index [BMI] 30.0-30.9, adult; Z79.899 Other long term (current) drug therapy

== ENCOUNTER → 2020-12-14 | Outpatient (CLI) | payer OTHER | LOC: SJCVC 13:12 | PROVIDERS: ATTEND Internal Medicine | DX: I10 Essential (primary) hypertension (principal); E78.5 Hyperlipidemia, unspecified; M54.12 Radiculopathy, cervical region; E11.9 Type 2 diabetes mellitus without complications; R42 Dizziness and giddiness; G89.4 Chronic pain syndrome; E66.9 Obesity, unspecified; Z88.8 Allergy status to other drugs, medicaments and biological substances; Z88.5 Allergy status to narcotic agent; Z79.4 Long term (current) use of insulin; Z79.899 Other long term (current) drug therapy; Z87.891 Personal history of nicotine dependence; Z82.49 Family history of ischemic heart disease and other diseases of the circulatory system ==

== ENCOUNTER 2021-03-31 10:47 | Emergency (ER) | payer OTHER ==
[~2021-03-31] VITALS: Ht 172.7 cm; Wt 90.7 kg
[2021-03-31] MEDS ORDERED: LANTUSSOLASTAR SUBQ (11:07)
[2021-03-31] MEDS ORDERED: HUMALOG100 UNIT/1 SUBQ (11:07)
[2021-03-31] MEDS ORDERED: PLAVIX 75 MG TA75 MG PO (11:08)
[2021-03-31] MEDS ORDERED: LISINOPRIL20 MG PO (11:09)
[2021-03-31] MEDS ORDERED: METFORMIN HCL500 M3 PO (11:09)
[2021-03-31] MEDS ORDERED: OLANZAPINE2.5 MG PO (11:10)
[2021-03-31] MEDS ORDERED: ROSUVASTATIN CA10 MG PO (11:11)
[2021-03-31 11:35] LABS: ABSOLUTE NEUTROPHILS 2.9 thou/uL (1.4-8.2); EOSINOPHILS 3.4 % (0.0-3.0); HEMATOCRIT 36.5 % (37.0-47.0); HEMOGLOBIN 12.5 gm/dL (12.0-15.0); MCH 30.6 pg (26.0-34.0); MCHC 34.3 g/dL (28.0-37.0); MCV 89.2 fL (80.0-100.0); MONOCYTES 8.6 % (1.0-8.0); PLATELET COUNT 177 thou/uL (150-400); RDW 13.1 % (10.5-14.5); WBC 5.9 thou/uL (4.0-11.0)
[2021-03-31 11:47] LABS: ANION GAP 9 mmol/L (7-16); BUN 18 mg/dL (7-18); CALCIUM 8.8 mg/dL (8.5-10.1); CHLORIDE 106 mmol/L (98-107); CO2 26 mmol/L (21-32); CREATININE 0.9 mg/dL (0.6-1.0); GLUCOSE 201 mg/dL (74-106); POTASSIUM 4.5 mmol/L (3.5-5.1); SODIUM 141 mmol/L (136-145)
[2021-03-31 11:56] LABS: ALBUMIN 3.6 g/dL (3.4-5.0); DIRECT BILIRUBIN < 0.1 mg/dL (<0.1-0.2); SGOT 22 U/L (15-37); SGPT 29 U/L (30-65); TOTAL BILIRUBIN 0.2 mg/dL (0.2-1.0); TOTAL PROTEIN 6.9 g/dL (6.4-8.2)
--- NOTE | 2021-03-31 12:46 | EKG ---
[place] [address] [facility] [place] [address] ELECTROCARDIOGRAM REPORT Name: GABRIELE MONTALVO Room #: REG [facility]#: [id number] Admission: 03/31/21 Attend Phys: Discharge: Date of : 51 Report #: [id number] [facility] ED Test Date: 2021-03-31 Test Time: 11:08:06 Pat Name: GABRIELE MONTALVO Department: Room: Gender: F Vision Therapist: BEN : 1955 Requested By: Sudheer Ashraf Order Number: [id number] MD: Igor Garrett Measurements Intervals Ada Rate: 57 P: 6 KS: 159 QRS: -41 QRSD: 114 T: -9 QT: 453 QTc: 441 Interpretive Statements Sinus rhythm Compared to ECG 03/04/2019 07:38:58 Left bundle-branch block now present Left anterior fascicular block no longer present T-wave abnormality no longer present Electronically Signed On 03-31-2021 12:46:21 CDT by Igor Garrett [email or web address] <ELECTRONICALLY SIGNED> By: Igor Garrett MD, [facility] 03/31/21 1246 Igor Garrett MD, FAC /EPI
[2021-03-31 13:18] LABS: URINE BILIRUBIN NEGATIVE (Negative); URINE BLOOD NEGATIVE (Negative); URINE CLARITY CLEAR; URINE COLOR YELLOW; URINE GLUCOSE-RANDOM* NEGATIVE (Negative); URINE KETONES NEGATIVE (Negative); URINE LEUKOCYTES-REFLEX NEGATIVE (Negative); URINE NITRITE-REFLEX NEGATIVE (Negative); URINE PROTEIN (DIPSTICK) NEGATIVE (Negative); URINE SPECIFIC GRAVITY >= 1.030 (1.005-1.035); URINE UROBILINOGEN 0.2 E.U./dl (0.2-1.0)
[2021-03-31 13:55] VITALS: BP 138/68
== END 2021-03-31 14:09 | disposition home or self-care (01) ==
LOC: ER 10:47
PROVIDERS: Student in an Organized Health Care Education/Training Program
DX: S00.91XA Abrasion of unspecified part of head, initial encounter (principal); Z20.822 Contact with and (suspected) exposure to COVID-19; S80.212A Abrasion, left knee, initial encounter; Z90.89 Acquired absence of other organs; Z90.49 Acquired absence of other specified parts of digestive tract; Z90.710 Acquired absence of both cervix and uterus; Z79.82 Long term (current) use of aspirin; Z79.4 Long term (current) use of insulin; Z87.891 Personal history of nicotine dependence; Z88.6 Allergy status to analgesic agent; Z88.5 Allergy status to narcotic agent; Z88.0 Allergy status to penicillin; W17.89XA Other fall from one level to another, initial encounter; Y93.89 Activity, other specified; Y92.89 Other specified places as the place of occurrence of the external cause; Y99.8 Other external cause status